=== PATIENT | male | born 1970 | race Caucasian/White ===

== ENCOUNTER 2022-03-07 19:41 | Emergency (ER) | payer OTHER, MEDICAID, SELFPAY ==
[2022-03-07 20:03] VITALS: BP 142/93; PULSE 68; RESP 20; TEMP 36.7; O2SAT 96; BMI 25.7
--- NOTE | 2022-03-07 20:11 | DI.RAD.S_ITS ---
PROCEDURE: XR HAND LT MIN 3V INDICATIONS: laceration TECHNIQUE: Three views of the hand acquired. COMPARISON: None. FINDINGS: Bones: No fractures or dislocations. Carpal bones are normally aligned. There is mild degeneration of the distal interphalangeal joints. There is also mild degeneration of the distal radioulnar joint. No suspicious bony lesions. Soft tissues: No radiopaque foreign bodies. There are soft tissue lacerations of the 2nd and 3rd digits distally. No suspicious soft tissue calcifications. IMPRESSION: 1. No fractures or radiopaque foreign bodies. Dictated by: Jareth Blevins M.D. on 03/07/2022 at 21:27 Approved by: Jareth Blevins M.D. on 03/07/2022 at 21:37
--- NOTE | 2022-03-07 21:29 | ED_ITS ---
HPI - Wound/Laceration General Chief Complaint: Wound/Laceration Stated Complaint: Lt index finger deep lac Time Seen by Provider: 03/07/22 23:59 History of Present Illness HPI narrative: 51-year-old male daily smoker without chronic medical problems presents with an accidental injury to his left index finger just prior to arrival. He was at work and using an angle saw grinder when it slipped and lacerated the side of his finger. He has pain and bleeding but denies any numbness, tingling or weakness. He has a small laceration to the tip of his middle finger as well. He states his tetanus will need to be updated. He denies other injury and is otherwise well. He has no headache or blurred vision. He denies any prodromal symptoms and states it was merely an accident. She denies any chest pain or shortness of breath. He is had no nausea, vomiting or diarrhea. He denies urinary complaints. Related Data Previous Rx's Medication Instructions Recorded cephalexin 500 mg capsule 500 mg PO Q6H 7 days #28 caps 03/08/22 hydrocodone 5 mg-acetaminophen 325 1 tab PO Q4-6H PRN pain #10 tabs 03/08/22 mg tablet Allergies Allergy/AdvReac Type Severity Reaction Status Date / Time No Known Drug Allergies Allergy Verified 03/07/22 20:10 Review of Systems Review of Systems Narrative: GENERAL: Denies chills, fatigue, malaise, fever, sweats. HEENT: Denies sinus pain, ear pain, sore throat, difficulty swallowing, dizziness. RESPIRATORY: Denies dyspnea, cough, wheezing, hemoptysis, sputum. CARDIOVASCULAR: Denies chest pain, palpitations, orthopnea, edema, GASTROINTESTINAL: Denies nausea, vomiting, abdominal pain, diarrhea, constipation, melena. : Denies dysuria, frequency, incontinence, hematuria, urinary retention. MUSCULOSKELETAL: See HPI SKIN: See HPI NEUROLOGIC: Denies weakness, headache, numbness, change in speech, confusion, seizures, incoordination. PSYCHIATRIC: No concerning psychosocial issues. 12 point review of systems is negative except for those stated above Patient History Social History Smoking Status: Current every day smoker Smoking Status: Current every day smoker alcohol intake frequency: holidays/special occasions only Substance Use Type: marijuana Exam Narrative Exam Narrative: GENERAL: [51] year old patient appears stated age. Well-developed patient, in mild distress. HEAD: Atraumatic. Normocephalic. EYES: Pupils equal round and reactive. Extraocular motions intact. No scleral icterus. No injection or drainage. ENT: Nose without bleeding, purulent drainage. Throat without erythema, tonsillar hypertrophy or exudate. Airway patent. NECK: Trachea midline. Non tender CARDIOVASCULAR: Regular rate and rhythm without murmurs, gallops, or rubs. RESPIRATORY: Clear to auscultation. Breath sounds equal bilaterally. No wheezes, rales, or rhonchi. GASTROINTESTINAL: Abdomen soft, non-tender, nondistended. EXTREMITIES: 6 cm irregular and somewhat deep laceration along lateral edge of left index finger. There is some active bleeding, when viewed under bloodless field there is no evidence of foreign body, tendon or obvious bony involvement. Patient has intact cap refill and sensation intact. There is a disruption in the nail but no active bleeding and nail is largely still adhered to the nail bed. No nail fold involvement. Left middle finger has a very small avulsion type laceration which will not require repair. BACK: Nontender without deformity or crepitance. No flank tenderness. NEURO: AOx3. SKIN: No rash or erythema of visible areas Initial Vital Signs Initial Vital Signs: Vital Signs Temperature 98.1 F 03/07/22 20:03 Pulse Rate 68 03/07/22 20:03 Respiratory Rate 20 03/07/22 20:03 Blood Pressure 142/93 H 03/07/22 20:03 Pulse Oximetry 96 03/07/22 20:03 Oxygen Delivery Method 03/07/22 20:03 Procedures Laceration Repair Laceration 1: Site: hand Side (If applicable): left Size (cm): 6 Description: irregular and clean Depth: simple, single layer Pre-repair: wound explored, irrigated extensively, deep structures intact and cleansed with chlorhexadine Skin layer closed with: nylon Skin layer suture size: 3-0 and 4-0 Number of sutures: 9 Nerve Block Nerve Block 1: Time out performed: Yes Local Anesthetic: lidocaine 2% Amount of anesthesia used (mL): 5 Side: left Nerve Blocks: digital Orthopedic Splinting/Casting Injury #1: Side: left Upper Extremity Injury Location: finger Upper Extremity Immobilizer: finger (other) Course Orders Ordered: Discontinued Medications Hydrocodone Bitart/Acetaminophen (Hydrocodone/Acet 5/325 Prepack) 1 bottle MISC SEEINSTR ONE Stop: 03/08/22 00:52 Last Admin: 03/08/22 00:57 Dose: 1 bottle Documented By: ALYSA Cefazolin Sodium (Cephalexin 250 Mg Prepack) 1 bottle MISC SEEINSTR ONE Stop: 03/08/22 00:08 Last Admin: 03/08/22 00:21 Dose: 2 cap Documented By: ALYSA Diphtheria/Tetanus/Acell Pertussis (Tet,Diph,Pertuss(Acell),Vac/Pf 0.5 Ml Syringe) 0.5 ml IM .ONCE ONE Stop: 03/08/22 00:08 Last Admin: 03/08/22 00:22 Dose: 0.5 ml Documented By: ALYSA Vital Signs Vital signs: Vital Signs - 8 hr 03/07/22 20:03 Temperature 98.1 F Pulse Rate 68 Respiratory Rate 20 Blood Pressure 142/93 H Pulse Oximetry 96 Oxygen Delivery Method Room Air MDM - Wound/Laceration Imaging Data Extremity x-ray #1: Radiologist's Impression: [place] [address] XRay Report Signed Patient: Remberto Johnson MR#: [id number] : 1970 Acct:[id number] Age/Sex: 51 / M Date of Service: 03/07/22 Loc: Accession Number: [id number] ?? Procedure: XR hand LT min 3V Ordering Provider: Zhen Bravo D.O. PROCEDURE:? XR HAND LT MIN 3V ? INDICATIONS:? laceration ? TECHNIQUE:? Three views of the hand acquired.? ? COMPARISON:? None. ? FINDINGS:? ? Bones:? No fractures or dislocations.? Carpal bones are normally aligned.? There is mild degeneration of the distal interphalangeal joints.? There is also mild degeneration of the distal radioulnar joint.? No suspicious bony lesions.? ? Soft tissues:? No radiopaque foreign bodies.? There are soft tissue lacerations of the 2nd and 3rd digits distally.? No suspicious soft tissue calcifications.? ? ? IMPRESSION:? ? 1. No fractures or radiopaque foreign bodies.? ? ? Dictated by: Jareth Blevins M.D. on 03/07/2022 at 21:27 ? ? Approved by: Jareth Blevins M.D. on 03/07/2022 at 21:37 ? MDM Narrative Medical decision making narrative: 51-year-old male smoker with accidental laceration to left index finger. This is neurovascularly intact and imaging would suggest against any bony a bnormality. It was soaked, irrigated, cleansed with chlorhexidine and we initiated antibiotics with prescription for more. Despite all of our efforts I did have discussion with patient stating that this is at an increased risk of infection and stressed the importance of close follow-up. Sutures placed, hemostasis achieved, patient remained neurovascularly intact. Wound care including splinting as laceration crossed joints. Prescription sent to his pharmacy of choice. Questions answered to his apparent satisfaction Discharge Plan Departure Patient Disposition: Home Clinical Impression: Laceration Instructions: How to Care for a Laceration After Repair, DI for Laceration Repair Activity Restrictions/Additional Instructions: *You have been diagnosed with [complex laceration to left index finger requiring 9 sutures and splinting.] *What to do: *Please continue to take your regular medications as directed. [x ] New medication prescriptions sent to your pharmacy: [[facility] in [place] ] [ ] New medication written as a paper prescription [ ] No new medications given *Please follow up with [facility], call tomorrow for an appointment and let them know that you were seen in the emergency department and we would like you seen in follow-up. As stated, you had 9 sutures placed that will need to be taken out in 10-14 days, your orthopedic appointment would be appropriate, otherwise please schedule follow-up with your primary care provider or you may even return to the emergency department *Return to Emergency Department if you should have any new, worsening or concerning symptoms, such as [fever greater than 101 F, shaking chills, worsening pain, persistent vomiting or other bothersome symptoms] Prescriptions: New hydrocodone-acetaminophen 5-325 mg tablet 1 tab PO Q4-6H PRN (Reason: pain) Qty: 10 0RF cephalexin 500 mg capsule 500 mg PO Q6H 7 Days Qty: 28 0RF Referrals: Jodi Stone MD [Physician] - Visit Report Forms: Patient Portal/API
[2022-03-08] MEDS: cephALEXin 250 MG PREPACK 1 BOTTLE MISC (00:21)
[2022-03-08] MEDS: TET,DIPH,PERTUSS(ACELL),VAC/PF 0.5 ML SYRINGE IM (00:22)
[2022-03-08] MEDS: LIDOCAINE 2% INJ SDV 5 ML (00:29)
[2022-03-08] MEDS: HYDROCODONE/ACET 5/325 PREPACK 1 BOTTLE MISC (00:57)
[2022-03-08 01:18] VITALS: BP 140/90; PULSE 65; RESP 20; O2SAT 97
== END 2022-03-08 01:19 | disposition home or self-care (01) ==
PROVIDERS: Emergency Provider Emergency Medicine
DX: S61.211A Laceration without foreign body of left index finger without damage to nail, initial encounter (principal); W29.8XXA Contact with other powered hand tools and household machinery, initial encounter; Z23 Encounter for immunization
CPT/HCPCS: 12002; 73130; 90471; 99283; 90715